=== PATIENT | male | born 1980 | race American Indian/Alaskan Native ===

== ENCOUNTER 2020-10-27 19:52 | Emergency (ER) | payer SELFPAY ==
[2020-10-27 20:59] VITALS: BP 143/84
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
[2020-10-27] MEDS ORDERED: oxyCODONE /ACETAMINOPHEN 5-325MG TAB PO ONE (22:17)
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
== END 2020-10-27 23:45 | disposition home or self-care (01) ==
LOC: ED 19:52
DX: M54.5 Low back pain (principal); Z79.899 Other long term (current) drug therapy; V49.59XA Passenger injured in collision with other motor vehicles in traffic accident, initial encounter; Y93.89 Activity, other specified; Y92.488 Other paved roadways as the place of occurrence of the external cause; Y99.8 Other external cause status
CPT/HCPCS: 72100; 99283